=== PATIENT | male | born 1945 | race Caucasian/White ===

== ENCOUNTER → 2021-10-22 15:35 | Outpatient (BNVA) | payer OTHER, SELFPAY | PROVIDERS: Referring Provider Emergency Medicine Emergency Medical Services; Visit Provider Orthopaedic Surgery | DX: M75.01 Adhesive capsulitis of right shoulder (principal); M75.02 Adhesive capsulitis of left shoulder; M25.512 Pain in left shoulder; M25.511 Pain in right shoulder | CPT/HCPCS: 73020 ==

== ENCOUNTER 2021-10-29 14:16 | Outpatient (RCR) | payer OTHER, SELFPAY | END 2021-11-25 23:59 | disposition home or self-care (01) | LOC: MPT 14:16 | PROVIDERS: Referring Provider Orthopaedic Surgery; Visit Provider Orthopaedic Surgery | DX: M75.02 Adhesive capsulitis of left shoulder (principal); M75.01 Adhesive capsulitis of right shoulder | CPT/HCPCS: 97110; 97162 ==

== ENCOUNTER 2023-11-04 11:46 | Emergency (ER) | payer OTHER, SELFPAY ==
[2023-11-04 11:49] VITALS: BP 104/42; PULSE 86; RESP 18; TEMP 36.7; O2SAT 94; BMI 26.9
[2023-11-04 12:17] VITALS: BP 98/51; PULSE 86; O2SAT 96
--- NOTE | 2023-11-04 12:18 | ED_ITS ---
HPI - Weakness 2 General: Chief complaint: Weakness Stated complaint: Weakness bilat legs Time Seen by Provider: 11/04/23 11:49 Source: patient and family Mode of arrival: EMS Limitations: no limitations History of Present Illness: This patient was transferred to our emergency department from local long-term care facility because of progressive weakness. History is provided both by the patient as well as family. Patient has a history of multiple myeloma and is followed by Dr. Walsh at oncology at [facility]. Family states that approximately 2 weeks ago he was able to ambulate unaided without any difficulty albeit somewhat slow but again unaided and without any aids etc. Resting since that time has had been gradual onset of weakness in his lower extremities has resulted in his inability to ambulate or bear weight over the past 24 hours. Apparently was seen at at the oncology clinic last week but did not receive any additional chemotherapy at that time because of his general weakness. [facility] to pass [facility] and a Morrissey catheter was placed at that time. He does have a history of BPH but is never required a Morrissey catheter previously. He is also had some increasing shortness of breath over the past couple of days without fever or chills. 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 Associated symptoms: Denies chest pain, chills, dysuria, fever(s), headache(s), nausea or vomiting Review of Systems 2 Const: Denies: fever(s) or chills Eyes: Denies: change in vision Card: Denies: chest pain, palpitations or edema Resp: Reports: dyspnea; Denies: productive cough or non-productive cough GI: Denies: abdominal pain, nausea or vomiting : Reports: difficulty urinating; Denies: flank pain or dysuria Musc: Reports: back pain and muscle weakness; Denies: neck pain Skin/Breast: Denies: rash or pruritus Neuro: Reports: weakness in extremities and difficulty walking; Denies: headache(s) Endo: Denies: polyuria or polydipsia PFSH ED 2 PFSH: Social History Smoking and tobacco/nicotine status: current every day tobacco/nicotine user Alcohol intake: never Substance/Drug Use: never Physical Exam 2 Narrative: EXAM NARRATIVE: Patient is alert and answers questions appropriately does not appear to be in any acute distress. Const: COMMON NORMALS: no acute distress and patient oriented x3 GENERAL APPEARANCE: cooperative NUTRITIONAL APPEARANCE: overweight HENMT: COMMON NORMALS: normocephalic, Normal nasal mucous membranes and turbinates present, moist oral mucous membranes and oropharynx normal HEAD & SCALP: normocephalic NOSE: Normal nasal mucous membranes and turbinates present Eye: COMMON NORMALS: Equal, round and reactive pupils present, EOMs intact bilaterally and conjunctivae normal CONJUNCTIVA: Yes conjunctivae normal P UPIL: Yes Equal, round and reactive pupils present Neck/C-Spine: COMMON NORMALS: full ROM, no lymphadenopathy and no JVD Resp: COMMON NORMALS: normal respiratory effort, No retractions and No use of accessory muscles AUSCULTATION: crackles and diminished lung sounds Cardio: COMMON NORMALS: no JVD, regular rate, regular rhythm, No murmurs present (Cardio) and Peripheral pulses 2+ throughout RATE: regular rate R HYTHM: regular rhythm PERIPHERAL PULSES: Peripheral pulses 2+ throughout GI: OTHER: His abdomen is soft. There is hyperresonance to percussion with some shifting dullness. No tenderness masses rebound guarding or peritoneal signs noted. : COMMON NORMALS: Yes no CVA tenderness BLADDER/KIDNEY EXAM: Yes catheter in place and Yes no CVA tenderness Back/Pelvis: COMMON NORMALS: no CVA tenderness, thoracic and lumbar spine normal to inspection and no thoracic nor lumbar tenderness Extremity: COMMON NORMALS: normal to inspection, capillary refill normal and no calf tenderness Neuro: COMMON NORMALS: patient oriented x3 GAIT: Yes Unable to assess gait SENSORY EXAM: Yes Perineum abnormal Perineum sensation details: normal DEEP TENDON REFLEXES: Right patellar reflex intensity grade: 0, Left patellar reflex intensity grade: 0, Right ankle reflex intensity grade: 0 and Left ankle reflex intensity grade: 0 PLANTAR REFLEX: downgoing: right and left OTHER: Patient has motor weakness to both lower extremities and is unable to Psych: COMMON NORMALS: mental status grossly normal Skin: COMMON NORMALS: no rashes or lesions noted and no wounds GENERAL SKIN EXAM: no rashes or lesions noted Course 2 Reevaluation(s): Reevaluation #1: My concern because of the patient's progressive lower extremity weakness history of urinary retention and multiple myeloma is that he has a cord compression syndrome. My MRI capability at this facility is limited out of the emergency department I am unable to get an MRI done until late this evening. I feel that this patient's condition is such that a emergent MRI is warranted and discussed that with the patient as well as his family and recommend transfer to [place] for imaging and further care as indicated. They voiced understanding and agreed to proceed. I have contacted [facility] where his oncology team is located for transfer. Time: 12:49 Consultations: Consultation #1: Discussed with the emergency department at [facility] Dr. Vilchis agreed accept the patient for emergent MRI and further disposition. Time: 13:20 Vital Signs: Vital signs: Vital Signs Temperature 98.1 F 11/04/23 11:49 Pulse Rate 87 11/04/23 12:51 Respiratory Rate 18 11/04/23 11:49 Blood Pressure 99/40 11/04/23 12:51 Pulse Oximetry 96 11/04/23 12:51 Oxygen Delivery Me thod Nasal Cannula 11/04/23 12:51 Oxygen Flow Rate 2 11/04/23 12:51 MDM - Weakness Medical Decision Making This patient with a known history of multiple myeloma who is followed by oncology in [place] presented to our emergency department from the [facility] because of progressive lower extremity weakness that is accelerated over the past several days. There was also question of whether he is in urinary retention as [facility] and had a Morrissey catheter placed. His clinical examination here reveals a gentleman who has some mild congestion on pulmonary examination with decreased breath sounds but no acute respiratory distress. His is abdominal examination reveals evidence suggestive of ascites. His neurologic examination reveals decreased motor function to both lower extremities symmetrically. Absence of lower extremity reflexes. Because of his history and current presentation I am concerned about a possible cord compression syndrome. We are unable to get MRI imaging until later this evening and my recommendation and plan are to transfer him to [place] for imaging and further care. Lab Data I reviewed the patient's lab results. 11/04/23 12:00 11/04/23 12:00 Laboratory Results WBC 3.47 10^3/uL (3.29-11.43) 11/04/23 12:00 RBC 3.23 10^6/uL (3.85-5.65) L 11/04/23 12:00 Hgb 10.50 g/dL (11.27-16.99) L 11/04/23 12:00 Hct 31.8 % (37-53) L 11/04/23 12:00 MCV 98.5 fl (82-101) 11/04/23 12:00 MCH 32.5 pg (27-33) 11/04/23 12:00 MCHC 33.0 g/dL (30-55) 11/04/23 12:00 RDW 17.6 % (12.1-15.1) H 11/04/23 12:00 Plt Count 208 10^3/cmm (157-399) 11/04/23 12:00 MPV 11.1 fL (7.4-10.4) H 11/04/23 12:00 Neut % (Auto) 89.0 % 11/04/23 12:00 Lymph % (Auto) 4.9 % 11/04/23 12:00 [place] % (Auto) 5.8 % 11/04/23 12:00 Eos % (Auto) 0.0 % 11/04/23 12:00 Baso % (Auto) 0.0 % 11/04/23 12:00 Neut # (Auto) 3.09 10^3/uL (1.8-7.7) 11/04/23 12:00 Lymph # (Auto) 0.2 10^3/uL (0.8-4.8) L 11/04/23 12:00 [place] # (Auto) 0.2 10^3/uL (0.2-0.9) 11/04/23 12:00 Eos # (Auto) 0.0 10^3/uL (0.0-0.8) 11/04/23 12:00 Baso # (Auto) 0.0 10^3/uL (0.0-0.1) 11/04/23 12:00 Nucleated RBC % (auto) 0 % 11/04/23 12:00 Nucleated RBCs # 0.0 /100WBC 11/04/23 12:00 Sodium 141 mmol/L (136-145) 11/04/23 12:00 Chloride 102 mmol/L (98-107) 11/04/23 12:00 Carbon Dioxide 28 mmol/L (22-29) 11/04/23 12:00 Anion Gap 14.2 (5-19) 11/04/23 12:00 BUN 15 mg/dL (8-23) 11/04/23 12:00 GFR Calculation Not Reportable 11/04/23 12:00 Glucose 69 mg/dL (65-115) 11/04/23 12:00 Calculated Osmolality 291 mOsm/kg (285-295) 11/04/23 12:00 Calcium 9.4 mg/dL (8.5-10.5) 11/04/23 12:00 Total Bilirubin 0.2 mg/dL (0.15-1.2) 11/04/23 12:00 AST 13 U/L (0-40) 11/04/23 12:00 ALT 16 U/L (0-41) 11/04/23 12:00 Alkaline Phosphatase 60 U/L (40-130) 11/04/23 12:00 Troponin T Baseline 55 ng/L (0-15) H 11/04/23 12:00 Albumin 3.7 g/dL (3.5-5.2) 11/04/23 12:00 Globulin 2.4 g/dL (1.3-4.6) 11/04/23 12:00 No radiology studies performed this visit EKG Data EKG 1: I personally reviewed and interpreted this EKG as follows: Interpretation: Resting EKG reveals a ventricular rate of 88 bpm. Normal [place] interval, QRS duration, corrected QT interval. Normal axis. He does have evidence of left bundle branch block. No concordant or discordant changes concerning for ischemia at this time. Discharge Plan Discharge Patient Disposition: Xfer Short-Term Hosp Clinical Impression: Cord compression syndrome, Multiple myeloma Condition: Stable Prescriptions: No Action metformin 1,000 mg tablet 1,000 mg PO BID alogliptin 25 mg tablet 25 mg PO DAILY tamsulosin 0.4 mg capsule 0.4 mg PO DAILY lisinopril-hydrochlorothiazide 20-12.5 mg tablet 1 tab PO BID aspirin [Adult Aspirin Regimen] 81 mg tablet,delayed release (DR/EC) 81 mg PO DAILY vitamin B complex [B Complex-Vitamin B12] Tablet 1 tab PO DAILY omega-3 fatty acids [Fish Oil Concentrate] 1,000 mg capsule 1,000 mg PO DAILY cholecalciferol (vitamin D3) 50 mcg (2,000 unit) capsule 50 mcg PO DAILY simvastatin 40 mg tablet 40 mg PO DAILY glipizide 10 mg tablet 10 mg PO QID Coding Level of Care Code ED Commodity Buyer for Paul Beckford
--- NOTE | 2023-11-04 12:19 | ECG_ITS ---
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 Measurements Intervals [place] Rate: 88 P: -5 KS: 148 QRS: 16 QRSD: 158 T: -50 QT: 429 QTc: 521 Interpretive Statements SINUS RHYTHM LEFT BUNDLE BRANCH BLOCK [120+ ms QRS DURATION, 80+ ms Q/S IN V1/V2, 85+ ms R IN I/aVL/V5/V6] No previous ECG available for comparison Electronically Signed On 11-04-2023 16:30:01 PORTFOLIO ACCOUNTANT by Chi Bell M.D. [id number]
[2023-11-04 12:26] LABS: Hematocrit 31.8 % (37-53); Lymphocytes # 0.2 10^3/uL (0.8-4.8); Lymphocytes % 4.9 %; Mean Corpuscular Hemoglobin 32.5 pg (27-33); Mean Corpuscular Volume 98.5 fl (82-101); Mean Platelet Volume 11.1 fL (7.4-10.4); Monocytes # 0.2 10^3/uL (0.2-0.9); Monocytes % 5.8 %; Neutrophils # 3.09 10^3/uL (1.8-7.7); Nucleated Red Blood Cells % 0 %; Platelet Count 208 10^3/cmm (157-399); Red Blood Count 3.23 10^6/uL (3.85-5.65); Red Cell Distribution Width 17.6 % (12.1-15.1); White Blood Count 3.47 10^3/uL (3.29-11.43)
[2023-11-04 12:46] LABS: Troponin(5th) Baseline 55 ng/L (0-15)
[2023-11-04 12:51] VITALS: BP 99/40; PULSE 87; O2SAT 96
[2023-11-04 12:54] LABS: Alanine Aminotransferase 16 U/L (0-41); Albumin Level 3.7 g/dL (3.5-5.2); Alkaline Phosphatase 60 U/L (40-130); Anion Gap 14.2 (5-19); Aspartate Amino Transferase 13 U/L (0-40); Blood Urea Nitrogen 15 mg/dL (8-23); Calcium 9.4 mg/dL (8.5-10.5); Carbon Dioxide 28 mmol/L (22-29); Chloride 102 mmol/L (98-107); Globulin 2.4 g/dL (1.3-4.6); Glucose 69 mg/dL (65-115); NT Pro B Type Natriuretic Pept 14591 pg/mL (0-450); Osmolality Calculated 291 mOsm/kg (285-295); Potassium 3.2 mmol/L (3.5-5.1); Sodium 141 mmol/L (136-145); Total Bilirubin 0.2 mg/dL (0.15-1.2); Total Protein 6.1 g/dL (6.6-8.7)
[2023-11-04 13:38] VITALS: BP 121/47; PULSE 88; O2SAT 97
== END 2023-11-04 14:08 | disposition short-term general hospital (02) ==
PROVIDERS: Emergency Provider Emergency Medicine
DX: G95.20 Unspecified cord compression (principal); Z72.0 Tobacco use
CPT/HCPCS: 80053; 83880; 84484; 85025; 93005; 99285